=== PATIENT | male | born 1940 | race African-American/Black ===

== ENCOUNTER → 2017-06-03 | Day surgery (SDC) | payer MEDICARE ==
[~2017-06-03] MED LIST: ALBU8I INH; ALUM5LIQ PO; ASPI81TA82 PO; ATEN-102 PO; B-12500T3 PO; BUPIVACAINE HCL PF 0.75% 30 ML VIAL ONE; CHOL1CAP6 PO; DEXAMETHASONE SOD PHOS 4 MG/ML VIAL IV ONE; DOCU1CAP39 PO; EPINEPHrine HCL (1:1000) 30 MG/30 ML VIAL OTHER ONE; GABA300C3 PO; HYDR-2768 PO; LISI40TA PO; MAGN400T PO; MIDAZOLAM HCL 5 MG/ML VIAL (1 ML) ONE; NAPR500 PO; OMEP20TA39 PO; PROPOFOL 200 MG/20 ML AMP IV ONE; VALI10TA PO; VIAG100T PO; ZOCO40TA PO; ceFAZolin 2 GM PREMIX 50 ML ONE
--- NOTE | 2017-06-04 09:10 | MP ---
cc: LINNETTE MELTON M.D. DATE OF SURGERY 06/03/2017 PREOPERATIVE DIAGNOSES Right shoulder massive rotator cuff tear. Right shoulder impingement syndrome. Right shoulder SLAP labral tear. Right shoulder osteoarthritis acromioclavicular joint. POSTOPERATIVE DIAGNOSES Right shoulder massive rotator cuff tear. Right shoulder impingement syndrome. Right shoulder SLAP labral tear. Right shoulder osteoarthritis acromioclavicular joint. PROCEDURE Right shoulder arthroscopic rotator cuff repair. Right shoulder arthroscopic subacromial decompression. Right shoulder arthroscopic extensive debridement of SLAP labral tear with chondroplasty glenohumeral joint. Right shoulder arthroscopic distal clavicle excision. SURGEON Dr. Linnette Melton BACK END DEVELOPER Minesh Wilson PA-C ANESTHESIA General with interscalene block. ESTIMATED BLOOD LOSS 50 cc. COMPLICATIONS None. IMPLANTS USED Arthrex. JUSTIFICATION This patient is 76-year-old male who has a severe injury with the right shoulder and has significant pain, weakness and disability as related to his condition. He has failed extensive conservative treatment. Clinical exam as well as MRI confirmed the above-named findings. The patient was counseled as and to the risks, benefits and alternatives to the above-named proposed surgical procedure. He did wish to proceed with surgery. PROCEDURE IN DETAIL Written consent was obtained. The patient was identified by name and scalene block anesthesia was administered to the right upper extremity by the anesthesiologist. The patient was taken to the operating room. General anesthesia was administered as well as 2 grams of IV Ancef. The patient was carefully turned to the left lateral decubitus position. A lateral arm roll was placed. All bony prominences and pressure points were well padded. An arthroscopic arm betts was gently applied to the right upper extremity and 10 pounds of traction placed. The right shoulder was prepped and draped using isopropyl alcohol, Hibiclens solution and DuraPrep solution. After a time-out was performed, a standard posterior and anterior glenohumeral arthroscopic portal was established. The glenohumeral joint revealed extensive, evidence of labral tearing along the anterior, superior and posterior portions. An arthroscopic shaver was introduced through an anterior portal. Extensive debridement of the labrum was performed from the 3 o'clock position up to the 12 o'clock position, back down to the 9 o'clock position. The biceps origin was intact. 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 A chondroplasty of bone and cartilage was performed along both the glenoid and humeral head. There was evidence of some grade 2 and early grade 3 changes. There was evidence of a massive rotator cuff tear involving the entire supraspinatus and infraspinatus tendon. Attention was then turned to the subacromial space and extensive subacromial decompression was performed. A bursectomy was performed with an arthroscopic shaver. An arthroscopic bur was used to perform acromioplasty and the cautery device was used to release the coracoacromial ligament. There was evidence of significant osteoarthritis at the acromioclavicular joint. An arthroscopic bur was used to perform a distal clavicle excision where 1 cm of distal clavicle was excised from both the lateral and anterior portal. The bur was used to decorticate the greater tuberosity in preparation for rotator cuff tendon repair. The tendon had significant degenerative tears and was retracted medially to the level of the glenoid and beyond. An arthroscopic shaver as well as an arthroscopic elevator was used to elevate free adhesions and an interval slide was performed along the anterior portion to allow for further mobilization of the tendon. At this point an Arthrex 5.5-mm Bio-SwiveLock anchor was inserted along the anterior medial portion of the tuberosity. The Arthrex scorpion device was used to shuttle #2 FiberWire suture in a horizontal mattress pattern through the torn midportion of the tendon. Arthroscopic sliding knots used for surgical repair. At this point an Arthrex FiberLink suture was placed along the midportion as well. All five suture limbs were then placed through the eyelet of an Arthrex 4.75-mm Bio-SwiveLock anchor. The anchors were tensioned and that anchor was then inserted along the lateral aspect of the tuberosity for a double row fixation. The interval between the supraspinatus and infraspinatus tendon showed complete tendon loss and significant degenerative changes. The far posterior portion of the infraspinatus also had a reasonably good tendon and I was able the pass three separate FiberLink sutures through the posterior portion. The sutures were placed through the eyelet of an Arthrex 4.75-mm Bio-SwiveLock anchor and that anchor was then inserted into the posterior aspect of the greater tuberosity through a separate posterior lateral portal. All anchors showed good purchase and fixation. At the conclusion of the surgical procedure the arthroscopic portals were closed with 3-0 Prolene sutures. Sterile dressing was applied. The patient was placed in a sling and swath and abduction pillow. He tolerated the procedure well with no intraoperative complications noted. Minesh Wilson physician export sales assistant certified was present during the entire procedure to include patient positioning and the procedure itself. The medical necessity of a physician export sales assistant was indicated due to the complexity of the procedure. He assisted with manipulation of the arm and also manipulation of the camera. He assisted with both shuttling of sutures and implantation of suture anchors for purposes of rotator cuff tendon repair. Linnette Melton MD JWM/SSB /3:09 PM /8:39 AM
== END | disposition home or self-care (01) ==
LOC: ESDC 11:47
PROVIDERS: ATTEND Orthopaedic Surgery Sports Medicine
DX: M75.121 Complete rotator cuff tear or rupture of right shoulder, not specified as traumatic (principal); M75.41 Impingement syndrome of right shoulder; S43.431A Superior glenoid labrum lesion of right shoulder, initial encounter; M19.011 Primary osteoarthritis, right shoulder
CPT/HCPCS: 01630; 01991; 29823; 29824; 29826; 29827; 64417; C1713; J0171; J0690; J1100; J2250